=== PATIENT | female | born 1985 | race Caucasian/White ===

== ENCOUNTER 2023-06-28 08:13 | Day surgery (SDC) | payer MEDICARE, MEDICAID ==
[2023-06-28] VITALS (7 sets, daily range): BP systolic 107–146; BP diastolic 73–87; PULSE 77–90; RESP 14–17; TEMP 98.2; O2SAT 97–100
[~2023-06-28] VITALS: Ht 162.6 cm; Wt 72.8 kg
[2023-06-28] MEDS ORDERED: ARIP10TA57 PO (08:53)
[2023-06-28] MEDS ORDERED: ESCI-8 PO (08:53)
[2023-06-28] MEDS ORDERED: L-NO1TBD14 PO (08:53)
[2023-06-28] MEDS: normal saline 1000ml 1,000 ML IV SCH (09:16)
[2023-06-28] MEDS ORDERED: cefazolin 2gm/D5W 100mL 100 ML IV ONE (09:25)
[2023-06-28 09:27] LABS: BASOPHILS # (AUTO) 0.1 X10'3 (0-0.2); EOSINOPHILS # (AUTO) 0.1 X10'3 (0-0.9); EOSINOPHILS % (AUTO) 1.9 % (0-6); HEMATOCRIT 38.4 % (35.0-45.0); HEMOGLOBIN 12.4 g/dl (12.0-16.0); LYMPHOCYTES # (AUTO) 1.7 X10'3 (1.1-4.8); LYMPHOCYTES % (AUTO) 23.6 % (21-51); MEAN CORPUSCULAR HEMOGLOBIN 32.6 PG (27.0-31.0); MEAN CORPUSCULAR HGB CONC 32.2 g/dL (33.0-36.5); MEAN CORPUSCULAR VOLUME 101.4 FL (78-98); MEAN PLATELET VOLUME 8.9 FL (7.4-10.4); MONOCYTES # (AUTO) 0.5 X10'3 (0-0.9); MONOCYTES % (AUTO) 6.7 % (2-12); NEUTROPHILS # (AUTO) 4.8 X10'3 (1.8-7.7); NEUTROPHILS % (AUTO) 66.8 % (42-75); PLATELET COUNT 159 X10'3 (140-440); RED BLOOD COUNT 3.78 X10'6 (4.20-5.60); RED CELL DISTRIBUTION WIDTH 18.9 % (11.5-14.5); WHITE BLOOD COUNT 7.2 X10'3 (4.5-11.0)
[2023-06-28] MEDS ORDERED: fentaNYL/PF 50MCG/1 ML 2ML syringe ONE (09:35)
[2023-06-28] MEDS ORDERED: midazolam 1 mg/ML 2ml injection ONE (09:35)
[2023-06-28] MEDS ORDERED: heparin 1,000unit/ml 10ml vial 10 ML ONE (09:35)
[2023-06-28] MEDS ORDERED: LIDOcaine 1% 30ml preserv. free vial ONE (09:35)
[2023-06-28 09:39] LABS: INR 1.1 INR; PROTHROMBIN TIME 11.3 SECONDS (9.0-12.0)
[2023-06-28 09:40] LABS: ANISOCYTOSIS 2+; PLATELET ESTIMATE NORMAL; STOMATOCYTES 1+
[2023-06-28] MEDS ORDERED: iohexol 300 MG/1 ML 50ml polymer ONE (10:22)
== END 2023-06-28 13:05 | disposition home or self-care (01) ==
LOC: SSTAY O 08:13
PROVIDERS: ATTEND Radiology Vascular & Interventional Radiology
DX: T82.49XA Other complication of vascular dialysis catheter, initial encounter (principal); F41.9 Anxiety disorder, unspecified; F32.A Depression, unspecified; F43.10 Post-traumatic stress disorder, unspecified; Z87.440 Personal history of urinary (tract) infections; N18.6 End stage renal disease; Z79.899 Other long term (current) drug therapy; Y83.8 Other surgical procedures as the cause of abnormal reaction of the patient, or of later complication, without mention of misadventure at the time of the procedure; Y92.89 Other specified places as the place of occurrence of the external cause
CPT/HCPCS: 36415; 36581; 37248; 75825; 77001; 85025; 85610; 93308; 99152; J1644; J2250; J3010; J3490; J7030; Q9967; 85008; 96360; 99153